=== PATIENT | female | born 1970 | race Caucasian/White ===

== ENCOUNTER 2017-08-28 08:29 | Observation (INO) | payer MEDICAID ==
[~2017-08-28] VITALS: Ht 170.2 cm; Wt 108.9 kg
[2017-08-28 10:19] LABS: Basophils # (auto) 0.1 uL; Basophils % (auto) 0.8 % (0.0-2.0); Eosinophils # (auto) 0.1 uL; Eosinophils % (auto) 1.9 % (0.0-7.0); Hematocrit 39.1 % (36.0-46.0); Hemoglobin 12.9 g/dL (12.2-16.2); Lymphocytes # (auto) 1.9 uL; Lymphocytes % (auto) 28.9 % (10.0-50.0); Mean Corpuscular Volume 90.9 fL (80.0-100.0); Monocytes # (auto) 0.4 uL; Monocytes % (auto) 5.6 % (0.0-12.0); Neutrophils # (auto) 4.1 uL; Neutrophils % (auto) 62.8 % (37.0-80.0); Nucleated Red Blood Cells % 0.1 %; Platelet Count (auto) 342 10^3/uL (140-450); Red Cell Distribution Width 13.3 % (11.8-14.3); White Blood Cell 6.5 10^3/uL (4.4-10.8)
[2017-08-28 10:36] LABS: Albumin 3.5 g/dL (3.4-5.0); BUN/Creatinine Ratio 14.1; Bilirubin, Total 0.6 mg/dL (0.2-1.0); Calcium 8.4 mg/dL (8.5-10.1); Magnesium 2.3 mg/dL (1.6-2.6); Potassium 4.1 mmol/L (3.5-5.1)
[2017-08-28] MEDS ORDERED: ASPirin 81 mg TAB PO ONE (14:15)
[2017-08-28 14:57] VITALS: BP 147/89
[2017-08-28] MEDS ORDERED: ALPRAZolam 0.5 MG TAB PO ONE (15:30)
[2017-08-28 19:01] LABS: INR 0.96 (0.9-1.15); Partial Thromboplastin Time 24.2 sec (22.64-33.71); Prothrombin Time 10.5 sec (9.37-12.3)
== END 2017-08-28 17:07 | disposition left against medical advice (07) | DRG 203 ==
LOC: ER 08:29 → OVERFLOW 14:07 → ER 17:07
PROVIDERS: ADMIT Family Medicine; ATTEND Family Medicine
DX: R07.9 Chest pain, unspecified (principal)
CPT/HCPCS: 36415; 71046; 80053; 83735; 84443; 84484; 85025; 85379; 85610; 85730; 93005; 99281; G0378

== ENCOUNTER 2017-12-31 03:15 | Emergency (ER) | payer MEDICAID, OTHER ==
[~2017-12-31] VITALS: Ht 170.2 cm; Wt 104.3 kg
[2017-12-31 03:30] VITALS: BP 150/105
== END 2017-12-31 06:07 | disposition left against medical advice (07) ==
LOC: ER 03:18
DX: R10.9 Unspecified abdominal pain (principal); Z53.21 Procedure and treatment not carried out due to patient leaving prior to being seen by health care provider